=== PATIENT | male | born 1930 | race Caucasian/White ===

== ENCOUNTER → 2019-07-25 09:46 | Outpatient (CLI) | payer OTHER | END | disposition home or self-care (01) | LOC: D.LABREF 09:46 | PROVIDERS: ATTEND Orthopaedic Surgery | DX: M16.12 Unilateral primary osteoarthritis, left hip (principal) ==

== ENCOUNTER → 2019-07-25 17:32 | Outpatient (CLI) | payer OTHER | END | disposition home or self-care (01) | LOC: D.LABREF 17:32 | PROVIDERS: ATTEND Orthopaedic Surgery | DX: M16.12 Unilateral primary osteoarthritis, left hip (principal) ==

== ENCOUNTER 2019-08-02 10:29 | Inpatient (IN) | payer OTHER ==
[~2019-08-02] VITALS: Ht 180.3 cm; Wt 72.7 kg
[2019-08-28] MEDS ORDERED: ZOCOR80 MG (14:19)
[2019-08-28] MEDS ORDERED: OMEPRAZOLE20 M1 PO (14:20)
[2019-08-28] MEDS ORDERED: VOLTAREN75 MG PO (14:20)
[2019-08-28] MEDS ORDERED: SYMBICORT 16010.2 GM INH (14:21)
[2019-08-28] MEDS ORDERED: SPIRIVA RESPIMAT4 GM INH (14:21)
[2019-08-28] MEDS ORDERED: VENTOLIN HFA [SP8 GM INH (14:24)
[2019-08-28] MEDS ORDERED: BAYER CHEWABLE81 MG PO (14:25)
[2019-08-29 10:57] LABS: BASOPHILS 0.2 % (0-2); EOSINOPHILS 0.2 % (0-7); HEMATOCRIT 48.3 % (42.0-54.0); HEMOGLOBIN 15.5 g/dL (13.5-17.5); IMMATURE GRANULOCYTES 0.5 % (0-5); LYMPHOCYTES 12.9 % (15-50); MCH 31.5 pg (26.0-34.0); MCHC 32.1 g/dL (31.0-37.0); MCV 98.2 fL (80.0-100.0); MEAN PLATELET VOLUME 10.6 fL (7.4-10.4); MONOCYTES 7.3 % (2-11); NEUTROPHILS 78.9 % (40-80); PLATELET COUNT 299 10x3/uL (130-400); RBC 4.92 10x6/uL (4.20-6.10); RDW 13.2 % (11.5-14.5); WBC 12.3 10x3/uL (4.8-10.8)
[2019-08-29 11:03] LABS: BILIRUBIN NEGATIVE (NEGATIVE); GLUCOSE NEGATIVE (NEGATIVE); KETONE NEGATIVE (NEGATIVE); NITRITE NEGATIVE (NEGATIVE); UROBILINOGEN NORMAL (NORMAL)
[2019-08-29 11:09] LABS: ANION GAP 13.7 mmol/L (8-16); APTT 31.5 SECONDS (22.8-39.4); CALCIUM 9.7 mg/dL (8.5-10.1); CARBON DIOXIDE 26.7 mmol/L (21.0-32.0); CREATININE - SERUM 1.1 mg/dL (0.6-1.3); POTASSIUM - SERUM 4.4 mmol/L (3.5-5.1)
[2019-08-29 11:10] LABS: INR 0.96 (0.85-1.17); PROTIME 12.8 SECONDS (11.6-15.0)
[2019-09-04] VITALS (12 sets, daily range): BP systolic 118–146; BP diastolic 51–76; Ht 180.3 cm; Wt 72.7 kg
[2019-09-04 07:06] LABS: BASOPHILS 0.3 % (0-2); EOSINOPHILS 0.4 % (0-7); HEMATOCRIT 45.9 % (42.0-54.0); IMMATURE GRANULOCYTES 0.3 % (0-5); LYMPHOCYTES 15.2 % (15-50); MCH 31.4 pg (26.0-34.0); MCHC 32.7 g/dL (31.0-37.0); MCV 96.2 fL (80.0-100.0); MEAN PLATELET VOLUME 10.6 fL (7.4-10.4); MONOCYTES 8.8 % (2-11); PLATELET COUNT 261 10x3/uL (130-400); RBC 4.77 10x6/uL (4.20-6.10)
--- NOTE | 2019-09-04 20:00 | NUR ---
IN AND OUT CATH DONE DUE TO UNABLE TO VOID SINCE SURGERY AND UNCONFORTABLE, 800CC CLEAR SHANTE URINE RETURNED
--- NOTE | 2019-09-04 20:00 | NUR ---
ALERT RESTING IN BED, REPORTS MILD PAIN TO LEFT HIP, SEE SHIFT ASSESSMENT, CALL EVY PAREDES
[2019-09-05 00:55] VITALS: BP 139/43
[2019-09-05 05:20] LABS: BASOPHILS 0 % (0-2); EOSINOPHILS 0 % (0-7); HEMATOCRIT 38.6 % (42.0-54.0); HEMOGLOBIN 12.4 g/dL (13.5-17.5); IMMATURE GRANULOCYTES 0.3 % (0-5); LYMPHOCYTES 8.5 % (15-50); MCH 31.3 pg (26.0-34.0); MCHC 32.1 g/dL (31.0-37.0); MCV 97.5 fL (80.0-100.0); MEAN PLATELET VOLUME 10.7 fL (7.4-10.4); MONOCYTES 11.2 % (2-11); PLATELET COUNT 257 10x3/uL (130-400); RBC 3.96 10x6/uL (4.20-6.10)
[2019-09-05 05:32] LABS: WBC 15.8 10x3/uL (4.8-10.8)
[2019-09-05 05:40] LABS: ANION GAP 12.1 mmol/L (8-16); CALCIUM 8.5 mg/dL (8.5-10.1); CARBON DIOXIDE 26.4 mmol/L (21.0-32.0); CREATININE - SERUM 1.1 mg/dL (0.6-1.3); POTASSIUM - SERUM 4.5 mmol/L (3.5-5.1)
[2019-09-05 06:50] VITALS: BP 119/60
--- NOTE | 2019-09-05 07:15 | NUR ---
REC'D IN WALKING ROUND AWAKE AND ALERT. RESP EVEN AND UNLABORED WITH NO DISTRESS NOTED. CAN EXPRESS NEEDS AND WANTS. NO C/O NOTED OR VOICED. ASSESSMENT COMPLETED. DRESSING NOTED TO LEFT HIP. C/L IN REACH AT BEDSIDE.
--- NOTE | 2019-09-05 08:35 | OP ---
PATIENT NAME: FRANK SORTO MEDICAL RECORD: [id number] :34 LOCATION:D.MS [id number] ADMISSION DATE:09/04/19 SURGEON: JORGE FLORES DO DATE OF OPERATION: 09/04/2019 PROCEDURE PERFORMED: Left total hip arthroplasty. 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 INDICATIONS: Mr. Sorto is an 88-year-old male, who has had left hip pain for quite some time. He had a work up and he had a known AVN of his left femoral head, it began to bother him more and more and he was tired of dealing with that. In fact in the last 2 weeks, he could hardly put weight on it without having pain. I had x-rayed him back in June where he had started to have collapse of the superior aspect of the femoral head as you could see the very dense bone there from the AVN, and due to his pain and unknowing when that would prevent him from walking as it already had prevented him from doing his daily activities, he consented to the procedure, knowing that he had increased risks for COVID being in the hospital, but he wanted it done as he could hardly get around. He was aware of the other risks including infection, bleeding, damage to nerves including the lateral femoral cutaneous nerve, need for further surgery, fracture, continued numbness and pain and leg length discrepancies, blood clots and even . He was aware of all that and he signed a consent. SURGEON: Jorge Flores DO COFFEE SOMMELIER: Freddie Ortiz, certified surgical catering administrative assistant. DESCRIPTION OF PROCEDURE: The patient was taken to the operative suite, laid in the left lateral decubitus position and given a spinal and then placed supine and moved over to the Mcdonald table. He was then sedated and intubated. The left hip was then prepped and draped in sterile fashion. Timeout was performed, everyone was in agreeance with the correct side, site, patient and procedure. He received 2 grams of Ancef, 80 mg of gentamicin and a gram of TXA. Once the timeout had been performed and medicines were given, the incision began over the tensor fascia celsa muscle. Careful dissection was made down to the muscle. The fascia was taken anteriorly and the muscle belly posteriorly, and opened up the rectus interval. The rectus was then taken medially and the tensor fascia celsa laterally with the Nilson Salty. The ascending branch of lateral femoral circumflex artery was then encountered and coagulated and tied off and coagulated some more and then cut. Any bleeding afterwards was coagulated with the Aquamantys. The hip capsule was then opened. Hohmanns were placed around the neck and the neck cut was made. I then removed the head, it was very soft and crumbled as we removed it, the neck and part of the head. I then removed the labrum and the pulvinar. I then began reaming, first medializing then with a 46 and then went to a 50, 54 and 56, I then impacted a 56 cup and put the liner and impacted into place and the cup was in very good position and very solidly fixed. I then exposed the femur, and using the canal finder Joongel cutter opened up the canal and broached from a 4 to a 20. We then trialled a -6, this was too short, went with a standard and a +3, +3 seemed to be a little too long, so we decided to go with a standard. I then remove the stent, the trial and then irrigated out and then went to the final implant and put it in, impacted in the 20 stem and it fit very well. We then reduced the hip with OPERATIVE REPORT [id number] SORTOFRANK standard high offset stem with standard neck length, dual mobility. Once this was reduced, x-rays were taken, lengths seemed appropriate and close to same length if not right on the same to the right hip. The femur was x-rayed as well and there were no fractures seen in the femoral shaft or where the stem was. We then irrigated the incision out and the area out with a 10% povidone iodine with 500 mL normal saline solution. This was set for 3 minutes. We then irrigated that out with over a liter of normal saline and put Crys and vancomycin and tobramycin powder in the wound and closed the tensor fascia celsa with #1 Vicryl first in a [id number] and then a running locking stitch. Then Freddie Ortiz closed the skin with 2-0 Vicryl in an inverted interrupted fashion, 4-0 Monocryl ran on the skin and Prineo glue placed on the skin. He was then dressed with Telfa and Tegaderm. Awakened and taken to recovery in stable condition. Blood loss was approximately 200 mL. COMPLICATIONS: None. TRANSINT:[id number] Voice Confirmation ID: [id number] DOCUMENT ID: [id number] JORGE FLORES DO at 0835 CC: [id number] DICTATION DATE: 09/04/19 1132 GASATERIA ATTENDANT: 09/04/19 1250 ADM IN [place] [id number] [place] [address]
[2019-09-05 09:02] VITALS: BP 109/52
--- NOTE | 2019-09-05 12:00 | NUR ---
I have reviewed this patient and I concur with the Shift Assessment completed by the Licensed Practical Nurse today this shift.
[2019-09-05] MEDS ORDERED: KEFLEX500 MG PO (13:11)
[2019-09-05] MEDS ORDERED: BAYER CHEWABLE81 MG PO (13:11)
[2019-09-05] MEDS ORDERED: HYDROCODON-ACE1 EAC7 PO (13:11)
[2019-09-05 13:41] VITALS: BP 138/52
--- NOTE | 2019-09-05 14:36 | MORECARE ---
CASE MANAGEMENT DISCHARGE SUMMARY PATIENT: FRANK SORTO UNIT: [id number] ADM DATE: 09/04/19 AGE: 88 : 32 SEX: M ROOM/BED: D.2228 AUTHOR: KASSIE SOLARES PHYSICIAN: REFERRING PHYSICIAN: HENRRY FLORES DO DATE OF SERVICE: 09/05/19 Discharge Plan Patient Name: FRANK SORTO Facility: [facility]:[place] : 1930 Planned Disposition: Home or Self Care Anticipated Discharge Date: Discharge Date: Expected LOS: Initial Reviewer: [email or web address] Initial Review Date: 09/04/2019 Generated: 09/05/19 3:35 pm Patient Name: FRANK SORTO Page 19452 at 1436 All edits/amendments must be made on the electronic document DICTATION DATE: 09/05/19 1436 EMPLOYEE DEVELOPMENT MANAGER: SCOTT 09/05/19 1436 RPT#: [id number] DC DATE: STATUS: ADM IN [facility] [address] [place] [address] END OF REPORT
--- NOTE | 2019-09-05 14:43 | MORECARE ---
CASE MANAGEMENT DISCHARGE SUMMARY PATIENT: FRANK SORTO UNIT: [id number] ADM DATE: 09/04/19 AGE: 88 : 32 SEX: M ROOM/BED: D.2228 AUTHOR: KASSIE SOLARES PHYSICIAN: REFERRING PHYSICIAN: HENRRY FLORES DO DATE OF SERVICE: 09/05/19 Discharge Plan Patient Name: FRANK SORTO Facility: [facility]:[place] : 1930 Planned Disposition: Home or Self Care Anticipated Discharge Date: Discharge Date: Expected LOS: Initial Reviewer: [email or web address] Initial Review Date: 09/04/2019 Generated: 09/05/19 3:43 pm Comments DCP- Discharge Planning Updated by [email or web address]: Karli Tyler on 09/05/19 1:[address] Patient Name: FRANK SORTO Admission Status: Elective Accout number: [id number] Admission Date: 09-04-2019 : 1930 Admission Diagnosis: Attending: HENRRY FLORES Current LOS: 1 Anticipated DC Date: Planned Disposition: Home or Self Care Primary Insurance: [employer] Discharge Planning Comments: CM met with patient to complete initial dc planning assessment. CM educated patient on the CM role and verbal consent given by patient to complete assessment. Patient lives at home alone, he lives alone, but his son will be staying with him tonight. He said that he has a DESULFURIZER MACHINE who will come any day he needs her to. At discharge patient plans to return home and feels this is a safe discharge. CM discussed availability of home health, rehab services, and medical equipment. He has a nebulizer, walker at home and has access to a BSC. The patient did not want or think he needed PT. He was walking 200ft without any issues with a walker. Patient denied known discharge needs at this time. CM will continue to follow and will assist as needed with dc plans/needs. Institutional Nutrition Consultant: Karli Tyler DCPIA - Discharge Planning Initial Assessment Updated by [email or web address]: Karli Tyler on 09/05/19 2:37 pm * Is the patient Alert and Oriented? Yes * How many steps to enter\exit or inside your home? * PCP AMNA MCDERMOTT * [facility] * Preadmission Environment Home Alone * ADLs Independent * Equipment Bedside Commode Nebulizer Rolling Walker * List name and contact numbers for known caregivers / representatives who currently or will assist patient after discharge: EVELINE SORTO [phone] * Verbal permission to speak to the caregivers and representatives has been obtained from the patient. N/A * Community resources currently utilized None * Additional services required to return to the preadmission environment? No * Can the patient safely return to the preadmission environment? Yes * Has this patient been hospitalized within the prior 30 days at any hospital? No Last DP export: 09/05/19 1:36 pm Patient Name: FRANK SORTO Page [id number] at 1443 All edits/amendments must be made on the electronic document DICTATION DATE: 09/05/191442 CROSSBAR FRAME WIRER: SCOTT 09/05/191442 RPT#: [id number] DC DATE: STATUS: ADM IN [facility] [address] [place] [address] END OF REPORT
--- NOTE | 2019-09-05 14:51 | MORECARE ---
CASE MANAGEMENT DISCHARGE SUMMARY PATIENT: FRANK SORTO UNIT: [id number] ADM DATE: 09/04/19 AGE: 88 : 32 SEX: M ROOM/BED: D.2228 AUTHOR: KASSIE SOLARES PHYSICIAN: REFERRING PHYSICIAN: HENRRY FLORES DO DATE OF SERVICE: 09/05/19 Discharge Plan Patient Name: FRANK SORTO Facility: [facility]:[place] : 1930 Planned Disposition: Home or Self Care Anticipated Discharge Date: Discharge Date: Expected LOS: Initial Reviewer: [email or web address] Initial Review Date: 09/04/2019 Generated: 09/05/19 3:50 pm Comments DCP- Discharge Planning Updated by [email or web address]: Karli Tyler on 09/05/19 1:[address] I also gave the patient my card if he changes his mind about home health with PT, he said he would call me DCP- Discharge Planning Updated by [email or web address]: Karli Tyler on 09/05/19 1:[address] Patient Name: FRANK SORTO Admission Status: Elective Accout number: [id number] Admission Date: 09-04-2019 : 1930 Admission Diagnosis: Attending: HENRRY FLORES Current LOS: 1 Anticipated DC Date: Planned Disposition: Home or Self Care Primary Insurance: [facility] Discharge Planning Comments: CM met with patient to complete initial dc planning assessment. CM educated patient on the CM role and verbal consent given by patient to complete assessment. Patient lives at home alone, he lives alone, but his son will be staying with him tonight. He said that he has a DISPLAY SCREEN FABRICATOR who will come any day he needs her to. At discharge patient plans to return home and feels this is a safe discharge. CM discussed availability of home health, rehab services, and medical equipment. He has a nebulizer, walker at home and has access to a BSC. The patient did not want or think he needed PT. He was walking 200ft without any issues with a walker. Patient denied known discharge needs at this time. CM will continue to follow and will assist as needed with dc plans/needs. Freight Brake Operator: Karli Tyler DCPIA - Discharge Planning Initial Assessment Updated by [email or web address]: Karli Tyler on 09/05/19 2:37 pm * Is the patient Alert and Oriented? Yes * How many steps to enter\exit or inside your home? * PCP AMNA MCDERMOTT * [facility] * Preadmission Environment Home Alone * ADLs Independent * Equipment Bedside Commode Nebulizer Rolling Walker * List name and contact numbers for known caregivers / representatives who currently or will assist patient after discharge: EVELINE SORTO [phone] * Verbal permission to speak to the caregivers and representatives has been obtained from the patient. N/A * Community resources currently utilized None * Additional services required to return to the preadmission environment? No * Can the patient safely return to the preadmission environment? Yes * Has this patient been hospitalized within the prior 30 days at any hospital? No Last DP export: 09/05/19 1:43 pm Patient Name: FRANK SORTO Page 22162 at 1451 All edits/amendments must be made on the electronic document DICTATION DATE: 09/05/19 1450 COOKIE PADDER: SCOTT 09/05/19 1450 RPT#: [id number] SD DATE: STATUS: ADM IN [facility] [address] [place] [address] END OF REPORT
--- NOTE | 2019-09-05 15:10 | NUR ---
DC HOME AT THIS TIME VOICE UNDERSTANDING OF DC ORDERS. NO C/O NOTED. STABLE CONDITION UPON DEPARTURE. REFUSED TO LET NURSE CHANGE DRESSING. STATED " I CAN CHANGE IT BABY. MY RIDE IS DOWNSTAIRS." DRESSING CHANGES SUPPLIES WAS GIVEN TO PT. STABLE CONDITION UPON DEPARTURE.
--- NOTE | 2019-09-05 18:19 | MORECARE ---
CASE MANAGEMENT DISCHARGE SUMMARY PATIENT: FRANK SORTO UNIT: [id number] ADM DATE: 09/04/19 AGE: 88 : 32 SEX: M ROOM/BED: D.2228 AUTHOR: SUJATHADOC PHYSICIAN: REFERRING PHYSICIAN: HENRRY FLORES DO DATE OF SERVICE: 09/05/19 Discharge Plan Patient Name: FRANK SORTO Facility: [facility]:[place] : 1930 Planned Disposition: Home or Self Care Anticipated Discharge Date: Discharge Date: 09/05/2019 Expected LOS: 0 Initial Reviewer: [email or web address] Initial Review Date: 09/04/2019 Generated: 09/05/19 7:19 pm Comments DCP- Discharge Planning Updated by [email or web address]: Karli Tyler on 09/05/19 1:[address] I also gave the patient my card if he changes his mind about home health with PT, he said he would call me DCP- Discharge Planning Updated by [email or web address]: Karli Tyler on 09/05/19 1:[address] Patient Name: FRANK SORTO Admission Status: Elective Accout number: [id number] Admission Date: 09-04-2019 : 1930 Admission Diagnosis: Attending: HENRRY FLORES Current LOS: 1 Anticipated DC Date: Planned Disposition: Home or Self Care Primary Insurance: [facility] Discharge Planning Comments: CM met with patient to complete initial dc planning assessment. CM educated patient on the CM role and verbal consent given by patient to complete assessment. Patient lives at home alone, he lives alone, but his son will be staying with him tonight. He said that he has a EAR NOSE THROAT PHYSICIAN who will come any day he needs her to. At discharge patient plans to return home and feels this is a safe discharge. CM discussed availability of home health, rehab services, and medical equipment. He has a nebulizer, walker at home and has access to a BSC. The patient did not want or think he needed PT. He was walking 200ft without any issues with a walker. Patient denied known discharge needs at this time. CM will continue to follow and will assist as needed with dc plans/needs. Tools Administrator: Karli Tyler DCPIA - Discharge Planning Initial Assessment Updated by [email or web address]: Karli Tyler on 09/05/19 2:37 pm * Is the patient Alert and Oriented? Yes * How many steps to enter\exit or inside your home? * PCP AMNA MCDERMOTT * [facility] * Preadmission Environment Home Alone * ADLs Independent * Equipment Bedside Commode Nebulizer Rolling Walker * List name and contact numbers for known caregivers / representatives who currently or will assist patient after discharge: EVELINE SORTO [phone] * Verbal permission to speak to the caregivers and representatives has been obtained from the patient. N/A * Community resources currently utilized None * Additional services required to return to the preadmission environment? No * Can the patient safely return to the preadmission environment? Yes * Has this patient been hospitalized within the prior 30 days at any hospital? No Last DP export: 09/05/19 1:51 pm Patient Name: FRANK SORTO Page 18838 at 1819 All edits/amendments must be made on the electronic document DICTATION DATE: 09/05/191818 NOZZLEMAN: SCOTT 09/05/191818 RPT#: [id number] [place] DATE:09/05/19 STATUS: DIS IN [facility] [address] [place] [address] END OF REPORT
== END 2019-09-05 15:16 | disposition home or self-care (01) | DRG 470 ==
LOC: D.SDCHOLD 08-29 10:00 → D.MS 09-04 05:03 → D.SDCHOLD 09-04 05:03 → D.MS 09-04 11:58 → D.SDCHOLD 09-05 14:03 → D.MS 09-05 14:03
PROVIDERS: Internal Medicine Nephrology; ADMIT Orthopaedic Surgery; ATTEND Orthopaedic Surgery
PROC: 0SRB0JZ Replacement of Left Hip Joint with Synthetic Substitute, Open Approach (ICD-10-PCS; principal; 2019-09-04 09:00)
DX: M87.9 Osteonecrosis, unspecified (principal); R33.9 Retention of urine, unspecified; I10 Essential (primary) hypertension; E78.5 Hyperlipidemia, unspecified; K21.9 Gastro-esophageal reflux disease without esophagitis; K44.9 Diaphragmatic hernia without obstruction or gangrene; I25.10 Atherosclerotic heart disease of native coronary artery without angina pectoris; F32.9 Major depressive disorder, single episode, unspecified

== ENCOUNTER 2019-09-12 18:08 | Emergency (ER) | payer OTHER ==
[~2019-09-12] VITALS: Ht 180.3 cm; Wt 72.7 kg
[~2019-09-12 18:08] MED LIST: BAYER CHEWABLE81 MG PO; HYDROCODON-ACE1 EAC7 PO; KEFLEX500 MG PO; OMEPRAZOLE20 M1 PO; SPIRIVA RESPIMAT4 GM INH; SYMBICORT 16010.2 GM INH; VENTOLIN HFA [SP8 GM INH; VOLTAREN75 MG PO; ZOCOR80 MG
[2019-09-12 18:13] VITALS: Ht 180.3 cm; Wt 72.7 kg
[2019-09-12 19:13] LABS: HEMATOCRIT 38.1 % (42.0-54.0); HEMOGLOBIN 12.3 g/dL (13.5-17.5); MCH 31.1 pg (26.0-34.0); MCHC 32.3 g/dL (31.0-37.0); MCV 96.5 fL (80.0-100.0); PLATELET COUNT 374 10x3/uL (130-400); RBC 3.95 10x6/uL (4.20-6.10); RDW 12.8 % (11.5-14.5)
[2019-09-12 19:24] LABS: CALC OSMOLALITY 281 mosm/kg (275-300); CALCIUM 8.3 mg/dL (8.5-10.1); CARBON DIOXIDE 22.4 mmol/L (21.0-32.0); CHLORIDE - SERUM 104 mmol/L (98-107); CREATININE - SERUM 1.1 mg/dL (0.6-1.3); GLUCOSE 146 mg/dL (74-106); POTASSIUM - SERUM 3.8 mmol/L (3.5-5.1); SODIUM 138 mmol/L (136-145); UREA NITROGEN 20 mg/dL (7-18); eGFR NON AFRICAN AMERICAN 67 mL/min (90-120)
[2019-09-12 19:34] LABS: ALBUMIN 2.8 g/dL (3.4-5.0); ALKALINE PHOSPHATASE 88 U/L (30-120); ALT (SGPT) 39 U/L (10-68); AMYLASE - SERUM 27 U/L (25-115); BILIRUBIN - TOTAL 0.47 mg/dL (0.2-1.3); PROTEIN - SERUM 6.6 g/dL (6.4-8.2)
[2019-09-12 19:41] LABS: LIPASE 43 U/L (73-393); TROPONIN-I < 0.017 ng/mL (0.000-0.060)
[2019-09-12 19:44] LABS: BILIRUBIN NEGATIVE (NEGATIVE); GLUCOSE NEGATIVE (NEGATIVE); KETONE MODERATE mg/dL (NEGATIVE); NITRITE NEGATIVE (NEGATIVE); UROBILINOGEN NORMAL (NORMAL)
[2019-09-12 19:59] LABS: EOSINOPHILS 2 % (0-7); LYMPHOCYTES 7 % (15-50); MONOCYTES 1 % (2-11); NEUTROPHILS 90 % (40-80); PLATELET ESTIMATE NORMAL
[2019-09-13 01:15] VITALS: BP 174/73
== END 2019-09-13 01:15 | disposition home or self-care (01) ==
LOC: D.ER 18:08
PROVIDERS: Family Medicine
DX: K56.41 Fecal impaction (principal); D72.829 Elevated white blood cell count, unspecified; Z98.890 Other specified postprocedural states; I10 Essential (primary) hypertension; Z95.1 Presence of aortocoronary bypass graft; K21.9 Gastro-esophageal reflux disease without esophagitis